=== PATIENT | male | born 1965 | race Caucasian/White ===

== ENCOUNTER → 2018-04-28 | Outpatient (CLI) | payer BC ==
[2018-04-28 12:44] LABS: BASO % 0.4 %; BASO ABS # 0.02 K/uL (0-0.2); EOS % 1.3 %; EOS ABS # 0.07 K/uL (0-0.5); HEMATOCRIT 39.8 % (42-52); HEMOGLOBIN 14.7 g/dL (14.0-18.0); IG# 0.01 K/uL (0.00-0.02); LYMPH % 34.7 %; LYMPH ABS # 1.87 K/uL (1.2-3.4); MEAN CELL VOLUME 85.6 fL (80-100); MEAN CORPUSCULAR HEMOGLOBIN 31.6 pg (25-34); MEAN CORPUSCULAR HGB CONC 36.9 g/dl (32-36); MEAN PLATELET VOLUME 10.5 fL (7.4-10.4); MONO % 9.3 %; NEUT % 54.1 %; NEUT ABS # 2.92 K/uL (1.4-6.5); PLATELET COUNT 160 K/uL (130-400); RED CELL DISTRIBUTION WIDTH CV 12.6 % (11.5-14.5); RED CELL DISTRIBUTION WIDTH SD 39.6 fL (36.4-46.3); WHITE BLOOD COUNT 5.39 K/uL (4.8-10.8)
[2018-04-28 13:20] LABS: BLOOD UREA NITROGEN 11 mg/dl (7-18); CALCIUM 8.8 mg/dl (8.5-10.1); CARBON DIOXIDE 28 mmol/L (21-32); CHOLESTEROL 201 mg/dl (0-200); CREATININE 1.34 mg/dl (0.60-1.40); GLUCOSE 105 mg/dl (70-99); LDL CHOLESTEROL CALCULATED 126 mg/dl; POTASSIUM 3.8 mmol/L (3.5-5.1); SODIUM 137 mmol/L (136-145)
== END | disposition home or self-care (01) ==
LOC: C.LABPBG 08:37
PROVIDERS: ATTEND Family Medicine
DX: K62.5 Hemorrhage of anus and rectum (principal); Z13.220 Encounter for screening for lipoid disorders; Z00.00 Encounter for general adult medical examination without abnormal findings; Z12.5 Encounter for screening for malignant neoplasm of prostate

== ENCOUNTER 2019-05-03 09:29 | Inpatient (IN) ==
[2019-04-22 17:47] LABS: Basophils # (auto) 0.03 K/uL (0-0.2); Basophils % (auto) 0.4 %; Eosinophils # (auto) 0.05 K/uL (0-0.5); Eosinophils % (auto) 0.7 %; Hemoglobin 15.4 g/dL (14.0-18.0); Immature Granulocytes # (auto) 0.02 K/uL (0.00-0.02); Immature Granulocytes % (auto) 0.3 %; Lymphocytes # (auto) 2.09 K/uL (1.2-3.4); Lymphocytes % (auto) 30.7 %; Mean Corpuscular Hgb Conc 36.7 g/dL (32-36); Mean Corpuscular Volume 85.9 fL (80-100); Monocytes # (auto) 0.62 K/uL (0.11-0.59); Monocytes % (auto) 9.1 %; Neutrophils % (auto) 58.8 %; Platelet Count 188 K/uL (130-400); RDW Coefficient of Variation 12.2 % (11.5-14.5); RDW Standard Deviation 38.6 fL (36.4-46.3); Red Blood Count 4.89 M/uL (4.7-6.1); White Blood Count 6.81 K/uL (4.8-10.8)
[2019-04-22 18:00] LABS: BUN Creatinine Ratio 9.7 (10-20); Blood Urea Nitrogen 14 mg/dl (7-18); Calcium 9.1 mg/dl (8.5-10.1); Carbon Dioxide 28 mmol/L (21-32); Chloride 105 mmol/L (98-107); Est GFR (African American) 64.9; Glucose 94 mg/dl (70-99); Partial Thromboplastin Ratio 1.1; Partial Thromboplastin Time 29.6 Seconds (21.0-31.0); Prothrombin Time 10.6 Seconds (9.0-12.0); Sodium 139 mmol/L (136-145)
--- NOTE | 2019-04-27 15:28 | Anesthesiology Consultation ---
Date of Service April 27, 2019 Assessment & Plan (1) Encounter for pre-operative examination: Hx, ROS, Physical exam by Rosmery Castro PA-C on 01/06/19. Surgery date change. Data re-entered by Hussain Singer PA-C. Chart Review Chart Review: Acceptable Risk for Surgery and entry level staff accountant initiated (Patient seen by Rosmery Castro PA-C in PAT on 01/06/19) History Surgery Operation Date: 05/10/19 11:40 Proposed Procedures p L5-S1 Posterior Lumbar Interbody Fusion - Alex Calixto DO Height/Weight Height: 6 ft 1 in Weight: 90.718 kg Allergies Allergy/AdvReac Type Severity Reaction Status Date / Time bee pollen Allergy Severe Swelling Verified 04/22/19 07:47 Medications Home Medications Medication Instructions Recorded Confirmed Last Taken acetaminophen [Tylenol] 650 mg PO Q6H PRN 01/01/19 04/22/19 Unknown ibuprofen 400 mg PO QID PRN 01/01/19 04/22/19 Unknown Past Medical History Medical History Degeneration of intervertebral disc of lumbosacral region (Acute) Chronic back pain Exercise / Class Metabolic Activity III < 4 Walking/Shop/Light housework (Limited due to back pain. Able to climb FOS. Denies CP or SOB.) Past Surgical History Surgical History History of cholecystectomy History of neck surgery FUSION History of open reduction and internal fixation (ORIF) procedure RIGHT TIB/FIB Past Anesthesia History No Hx of Anesthesia Complications and No Family Hx of Anesthesia Complications History of PONV No Hx of PONV Social History Smoking Status: Never smoker Do You Dip or Chew Tobacco: No Hx Alcohol Use: Yes Alcohol type: beer alcohol intake frequency: 0-2 drinks per day Hx Substance Use: No substance use type: does not use Review of Systems Patient denies chest pain, shortness of breath, dyspnea on exertion, reflux, cough, wheezing, palpitations. +Joint Pain (Back) Physical Exam Vital Signs Vital Signs BP: 110/73 P: 74 R: 14 T: 97.9 SPO2: 100% on RA ENMT Thyromental Distance: < 3.5 Finger Breadths (2.5) Mallampati Class: III Neck normal visual inspection and trachea midline; neck extension not limited Respiratory normal respiratory effort Auscultation: lungs clear to auscultation bilaterally Cardiovascular Rate/Rhythm: regular rate and regular rhythm Heart Sounds: no murmur Vessels: no carotid bruit Neurologic moves all extremities Psychiatric Orientation: alert and oriented x 3 Testing Laboratory Results 04/22/19 16:37 04/22/19 16:35 PT 10.6 Seconds (9.0-12.0) 04/22/19 16:35 INR 1.0 (0.9-1.1) 04/22/19 16:35 APTT 29.6 Seconds (21.0-31.0) 04/22/19 16:35 Blood Type A Negative 04/22/19 16:36 Antibody Screen NEGATIVE 04/22/19 16:36 Electrocardiogram Date: 01/06/19 Findings: + NSR @ (60) Chest X-Ray Date: 01/06/19 Findings: + NAD
--- NOTE | 2019-04-30 15:15 | History and Physical Report ---
DATE OF ADMISSION: 05/03/2019 CHIEF COMPLAINT: Back pain. HISTORY OF PRESENT ILLNESS: Tim is a delightful patient. He has been worked up extensively. He is set up for a PLIF procedure L5-S1 lumbar spine. He has severe degenerative changes and instability of L5-S1 segment of lumbar area. PAST MEDICAL HISTORY: Negative for hypertension, COPD, diabetes mellitus. No carcinoma. No asthma. No childhood diseases. PAST SURGICAL HISTORY: Include neck surgery. ALLERGIES: No allergies. FAMILY HISTORY: Negative diabetes, heart disease. SOCIAL HISTORY: He is single. Minimal alcohol, no tobacco. Active lifestyle. REVIEW OF SYSTEMS: Twelve-system review is negative for fevers, sweats, chills. Ear, nose and throat negative. Denies chest pain, palpitations. No asthma, wheezing, shortness of breath. No nausea, vomiting. No urgency, frequency, dysuria. He admits to back pain, lower extremity difficulty, stiffness, no easy bruisability. No immune deficiency. MEDICATIONS: Hydrocodone. PHYSICAL EXAMINATION: GENERAL: He is 6 feet 1 inch, 202 pounds. VITAL SIGNS: Blood pressure 130/80, pulse 80, respiratory rate 16. HEENT: Pupils react to light and accommodation. Ear, nose and throat clear. CARDIAC: Normal S1, S2, no S3. LUNGS: Clear. ABDOMEN: Soft, nontender. EXTREMITIES: Intact x4. He has pain with range of motion of lumbar spine. Pain with percussion. No gross neurological deficit. Good vascularity and sensation. IMAGING DATA: X-rays demonstrate severely degenerative segment, L5-S1 lumbar spine. PLAN: Includes a PLIF procedure, L5-S1 lumbar spine.
[~2019-05-03 09:29] MED LIST: ACETAMINOPHEN 1,000 MG/100 ML VIAL IV SCH; CEFAZOLIN 2000MG 2,000 MG/15 ML SYR IV SCH; LR 15ML/HR IV SCH; SODIUM CHLORIDE 0.9% 1,000 ML IV SCH
[2019-05-03] MEDS ORDERED: ePHEDrine sulfate 50 MG/ML AMP IV PRN (12:10)
[2019-05-03] MEDS ORDERED: ATROPINE SULFATE 0.1 MG/ML 10ML SYR IV PRN (12:10)
[2019-05-03] MEDS ORDERED: ONDANSETRON INJ 2 MG/ML 2 ML VIAL IV PRN ×2 (12:10→17:56)
[2019-05-03] MEDS ORDERED: GLYCOPYRROLATE 0.2 MG/ML VIAL ONE ×2 (13:21→15:37)
[2019-05-03] MEDS ORDERED: LIDOCAINE HCL 2% 2 ML VIAL/AMP(20MG/ML) INFIL ONE (13:21)
[2019-05-03] MEDS ORDERED: DEXAMETHASONE SOD INJ 4 MG/ML VIAL ONE (13:21)
[2019-05-03] MEDS ORDERED: NEOSTIGMINE METHYLSULFATE 5 MG/5 ML SYR ONE (13:21)
[2019-05-03] MEDS ORDERED: ONDANSETRON INJ 2 MG/ML 2 ML VIAL ONE (13:21)
[2019-05-03] MEDS ORDERED: PROPOFOL IV EMULSION 10 MG/ML 20 ML VIAL IV ONE (13:21)
[2019-05-03] MEDS ORDERED: ROCURONIUM BROMIDE 10 MG/ML 5 ML VIAL ONE ×3 (13:21→14:54)
[2019-05-03] MEDS ORDERED: fentaNYL citrate 100 MCG/2 ML VIAL ONE (13:22)
[2019-05-03] MEDS ORDERED: HYDROmorphone INJ 2 MG/ML SYR/VIAL ONE ×2 (13:22→17:20)
[2019-05-03] MEDS ORDERED: MIDAZOLAM HCL 1 MG/ML 2ML VIAL ONE (13:22)
[2019-05-03] MEDS ORDERED: VANCOMYCIN HCL 1000MG/20ML VIAL ONE (13:50)
[2019-05-03] MEDS ORDERED: BACITRACIN INJ 50,000 UNIT VIAL ONE (13:51)
[2019-05-03] MEDS ORDERED: BUPIVACAINE/EPINEPHRINE 0.5% MPF 1:200,000 30 ML VIAL ONE (13:51)
[2019-05-03] MEDS ORDERED: GELATIN SPONGE SZ 100 ONE (13:51)
[2019-05-03] MEDS ORDERED: THROMBIN FOR SOLN 20000 UNIT KIT ONE (13:51)
--- NOTE | 2019-05-03 14:04 | History & Physical Bridge Note ---
Date of Service May 03, 2019 History & Physical Bridge Note I have examined the patient, reviewed the History & Physical and in the interval since the performance of the History & Physical I have noted the following changes of clinical significance: no changes noted
[2019-05-03] MEDS ORDERED: ePHEDrine sulfate 50 MG/ML AMP ONE (15:29)
--- NOTE | 2019-05-03 16:44 | Post Operative Brief Note ---
PG Immediate Post Op with CF Date of Surgery May 03, 2019 Pre & Post Diagnosis Operation Date: 05/03/19 11:40 Pre-Op Diagnosis: LUMBOSACRAL SPONDYLOSIS, DEGENERATIVE DISC Post-Op Diagnosis: LUMBOSACRAL SPONDYLOSIS, DEGENERATIVE DISC Procedure Operation Date: 05/03/19 11:40 Actual Procedures p L5-S1 Posterior Lumbar Interbody Fusion(Not Applicable) - Alex Calixto DO Surgeon Alex Calixto DO Map Mounter delroy Estimated Blood Loss 200 Findings Consistent with Post-Op Diagnosis Specimens Specimen Description: none per montezon Overlapping Procedure I was immediately available: during the entire case.
[2019-05-03] MEDS: fentaNYL citrate 100 MCG/2 ML VIAL IV PRN ×2 (16:59→17:04)
[2019-05-03] MEDS ORDERED: fentaNYL citrate 100 MCG/2 ML VIAL IV PRN (17:18)
[2019-05-03] MEDS: HYDROmorphone INJ 2 MG/ML SYR/VIAL IV PRN ×2 (17:21→17:26)
--- NOTE | 2019-05-03 17:36 | Fluoroscopy Report ---
LUMBAR SPINE, INTRAOPERATIVE FLUOROSCOPY HISTORY: L5-S1 posterior lumbar fusion. FLUOROSCOPY TIME: 12 seconds. FINDINGS: Intraoperative fluoroscopy was provided for the lumbar spine. Single fluoroscopic spot imag e demonstrates pedicle screws at L5-S1.. IMPRESSION: Fluoroscopy provided for a L5-S1 posterior decompression and fusion. Electronically signed by: Maxx Johnson M.D. 05/03/2019 5:34 PM
--- NOTE | 2019-05-03 17:48 | Anesthesiology Progress Note ---
Date of Service May 03, 2019 Anesthesia Post Procedure Vital Signs Vital Signs: Temp Pulse Resp BP Pulse Ox 05/03/19 17:40 36.3 C L 84 20 119/72 96 05/03/19 17:30 81 20 103/74 96 05/03/19 17:20 71 20 112/72 96 05/03/19 17:10 72 20 115/79 95 05/03/19 17:00 71 13 121/86 97 05/03/19 16:50 36 C L 85 16 139/98 95 05/03/19 10:11 36.2 C L 79 16 136/96 96 Pain Intensity Medial Back: Pain Intensity: 4 Transfer of Care Handoff Completed per policy Notes Mental Status: alert / awake / arousable and participated in evaluation Patient Amnestic to Procedure: Yes Nausea / Vomiting: adequately controlled Pain: improving with treatment Airway Patency, RR, SpO2: stable & adequate BP & HR: stable & adequate Hydration State: stable & adequate Anesthetic Complications: no major complications apparent and Pt Satisfied with anesthetic care
[2019-05-03] MEDS ORDERED: HYDROmorphone INJ 0.5 MG/0.5 ML SYR IV PRN (17:56)
[2019-05-03] MEDS ORDERED: MAGNESIUM HYDROXIDE SUSP 30 ML UDC PO PRN (17:56)
[2019-05-03] MEDS ORDERED: FAMOTIDINE 20 MG TAB PO PRN (17:56)
[2019-05-03] MEDS ORDERED: BISACODYL 10 MG SUPP PR PRN (17:56)
[2019-05-03] MEDS ORDERED: ACETAMINOPHEN 500 MG TAB PO PRN (17:56)
[2019-05-03 18:51] LABS: Creatinine Clr Calc Pharmacy 68.9 ml/min; Est GFR (African American) 59.3; Est GFR (Non-African American) 51.2
[2019-05-03] MEDS ORDERED: KETOROLAC 30 MG/ML VIAL IV SCH (19:00)
[2019-05-03] MEDS: LACTATED RINGER'S 1,000 ML IV SCH (19:10)
[2019-05-03] MEDS: DOCUSATE SODIUM/SENNA 50/8.6MG TAB PO SCH (21:05)
[2019-05-03] MEDS: CEFAZOLIN 2000MG 2,000 MG/15 ML SYR IV SCH (22:00)
[2019-05-04] MEDS: OXYCODONE HCL IR 5 MG TAB (IMMEDIATE RELEASE) PO PRN ×5 (00:26→22:11)
[2019-05-04] MEDS: CEFAZOLIN 2000MG 2,000 MG/15 ML SYR IV SCH (05:40)
[2019-05-04] MEDS: LACTATED RINGER'S 1,000 ML IV SCH (05:43)
[2019-05-04 05:54] LABS: Hematocrit (blood only) 36.4 % (42-52); Hemoglobin 13.2 g/dL (14.0-18.0); Immature Granulocytes # (auto) 0.03 K/uL (0.00-0.02); Immature Granulocytes % (auto) 0.3 %; Lymphocytes # (auto) 0.67 K/uL (1.2-3.4); Lymphocytes % (auto) 5.6 %; Mean Corpuscular Hgb Conc 36.3 g/dL (32-36); Mean Corpuscular Volume 85.4 fL (80-100); Mean Platelet Volume 9.7 fL (7.4-10.4); Monocytes # (auto) 1.09 K/uL (0.11-0.59); Monocytes % (auto) 9.1 %; Neutrophils # (auto) 10.16 K/uL (1.4-6.5); Platelet Count 153 K/uL (130-400); RDW Standard Deviation 37.1 fL (36.4-46.3); Red Blood Count 4.26 M/uL (4.7-6.1); White Blood Count 11.95 K/uL (4.8-10.8)
[2019-05-04 06:24] LABS: BUN Creatinine Ratio 11.3 (10-20); Calcium 8.8 mg/dl (8.5-10.1); Creatinine Clr Calc Pharmacy 70.3 ml/min; Est GFR (African American) 60.7; Est GFR (Non-African American) 52.4; Potassium 5.2 mmol/L (3.5-5.1)
--- NOTE | 2019-05-04 07:48 | Anesthesiology Progress Note ---
Date of Service May 04, 2019 Anesthesia Post Procedure Vital Signs Vital Signs: Temp Pulse Resp BP Pulse Ox 05/04/19 07:25 36.6 C 86 18 108/70 95 05/04/19 03:01 36.6 C 86 16 125/82 97 05/03/19 23:50 36.4 C L 80 16 112/73 96 05/03/19 21:01 36.4 C L 88 16 107/75 97 05/03/19 20:00 36.5 C 74 18 119/75 96 05/03/19 19:00 36.4 C L 83 16 130/85 95 05/03/19 17:57 36.5 C 80 16 111/75 96 05/03/19 17:40 36.3 C L 84 20 119/72 96 05/03/19 17:30 81 20 103/74 96 05/03/19 17:20 71 20 112/72 96 05/03/19 17:10 72 20 115/79 95 05/03/19 17:00 71 13 121/86 97 05/03/19 16:50 36 C L 85 16 139/98 95 05/03/19 10:11 36.2 C L 79 16 136/96 96 Pain Intensity Medial Back: Pain Intensity: 5 Notes Mental Status: alert / awake / arousable Patient Amnestic to Procedure: Yes Nausea / Vomiting: adequately controlled Pain: adequately controlled Airway Patency, RR, SpO2: stable & adequate BP & HR: stable & adequate Hydration State: stable & adequate
--- NOTE | 2019-05-04 07:58 | Operative Report ---
DATE OF OPERATION: 05/03/2019 PREOPERATIVE DIAGNOSES: Degenerative disc at L5-S1, instability L5-S1. POSTOPERATIVE DIAGNOSES: Degenerative disc at L5-S1, instability L5-S1. PROCEDURE: Include decompression laminectomy, foraminotomy, partial facetectomy and a PLIF. PROCEDURE: PLIF at L5-S1. SURGEON: Alex Calixto DO TRACTOR MECHANIC HELPER: EDWARD Galloway COMPLICATIONS: Zero. BLOOD LOSS: 200 mL. IMPLANTS USED: By the [employer]. The patient was identified in the preop holding area and marked bridge note provided. The patient successfully brought back to the OR. A general intubated anesthetic was provided to the patient. He was placed prone, scrubbed, prepped, draped sterile. I made a skin incision, fascial incision, came down readily on the L5-S1 disc interspace. I commenced with the decompressed neural elements, all the lamina of L5 was removed, the facet joints all freed up, all the elements were decompressed. I then safely got pedicle screws into L5 and sacrum bilaterally. I safely got a posterior lumbar interbody device at L5-S1 as well. It measured approximately 8 x 10 x 30 and this occupied a nice amount of the intervertebral space. This was packed with autograft and demineralized bone matrix. We locked down the construct. We tightened down the construct. We restored lordosis. We then bone grafted out over the transverse processes of L5 and the sacral ala. We closed over vancomycin powder and Hemovac drain. Prior to this closure, we irrigated with approximately 600 mL of fluid. We cleaned up all soft tissue. We used #1 Vicryl, 2-0 and staple gun on the skin. Sterile dressings applied. The patient returned to PACU improved, stable. There were no apparent complications. IMPLANTS USED: By the [employer]. Bone graft used was autograft and demineralized bone matrix. Sponge and needle count correct. I attest to the content of the Intraoperative Record and any orders documented therein. Any exception s are noted below.
[2019-05-04] MEDS: DOCUSATE SODIUM/SENNA 50/8.6MG TAB PO SCH (19:59)
[2019-05-05] MEDS: OXYCODONE HCL IR 5 MG TAB (IMMEDIATE RELEASE) PO PRN ×3 (04:01→10:16)
--- NOTE | 2019-05-05 07:41 | Discharge Summary ---
He is alert, oriented, taking p.o., ambulatory 30-40 feet. No issues. No chest pain, shortness of breath or confusion. ASSESSMENT: He had an uneventful 48-hour course here post-surgery, doing well. We will discharge him home later today. He requested rehab, no rehab bed is available and that would be fine, if he has to go home with home health that is certainly fine as well.
== END 2019-05-05 13:58 | disposition home health service (06) | DRG 455 ==
LOC: ASU 09:29 → 3E 17:15